=== PATIENT | female | born 1990 | race Caucasian/White ===

== ENCOUNTER → 2018-02-08 | Outpatient (CLI) | payer OTHER ==
[2012-11-05 23:50] VITALS: BP 119/57
[2018-02-08 22:36] LABS: ESTRADIOL 167 pg/mL (()); FOLLICLE STIMULATING HORMONE 2.5 mIU/mL (()); LUTENIZING HORMONE 3.2 mIU/mL (()); PROLACTIN 7.9 ng/mL (5.2-26.5)
== END ==
LOC: LAB 13:21
PROVIDERS: Family Medicine
DX: E28.8 Other ovarian dysfunction (principal); R23.2 Flushing

== ENCOUNTER 2018-04-20 22:01 | Emergency (ER) | payer OTHER ==
[2018-04-20] MEDS ORDERED: LEXAPRO20 M1 PO (22:09)
[2018-04-20] MEDS ORDERED: TYLENOL WITH CO1 TA1 PO (22:09)
[2018-04-20] MEDS ORDERED: AMOXICILLIN875 MG PO (22:09)
[2018-04-20] MEDS ORDERED: AUGMENTIN 875-1 EAC1 PO (23:00)
[2018-04-20 23:10] VITALS: BP 141/91
== END 2018-04-20 23:10 | disposition home or self-care (01) ==
LOC: ED 22:01
DX: K05.219 Aggressive periodontitis, localized, unspecified severity (principal); F17.210 Nicotine dependence, cigarettes, uncomplicated

== ENCOUNTER → 2019-06-10 | Outpatient (CLI) | payer BC ==
[~2019-06-10] MED LIST: AMOXICILLIN875 MG PO; AUGMENTIN 875-1 EAC1 PO; LEXAPRO20 M1 PO; TYLENOL WITH CO1 TA1 PO
[2019-06-10 16:45] LABS: EOS # 0.1 (0.04-0.40); EOS % 1.4 % (1.0-5.0); HEMATOCRIT 41.6 % (37.0-47.0); HEMOGLOBIN 14.5 g/dL (12.5-16.0); LYMPH# 1.6 (1.50-4.00); MEAN CELL VOLUME 91 fl (78-100); MEAN CORPUSCULAR HEMOGLOBIN 32 pg (27-31); MEAN CORPUSCULAR HGB CONC 35 g/dL (33-37); MEAN PLATELET VOLUME 10.5 fl (7.4-10.4); MONO # 0.6 (0.20-0.80); NEU # 4.6 (1.40-6.50); PLATELET COUNT 256 K/mm3 (130-400); RED BLOOD COUNT 4.56 M/mm3 (4.10-5.30); RED CELL DISTRIBUTION WIDTH 12.9 % (11.5-14.5); WHITE BLOOD COUNT 6.9 K/mm3 (4.8-10.8)
[2019-06-10 16:54] LABS: ALBUMIN 4.8 g/dL (3.5-5.0); POTASSIUM 3.9 mmol/L (3.5-5.1)
[2019-06-10 16:55] LABS: CALCIUM 9.7 mg/dL (8.3-10.5)
[2019-06-10 16:57] LABS: TOTAL PROTEIN 8.7 g/dL (6.4-8.3)
[2019-06-10 16:58] LABS: TOTAL BILIRUBIN 0.4 mg/dL (0.2-1.2)
== END ==
LOC: LAB 16:34
PROVIDERS: Family Medicine
DX: Z00.00 Encounter for general adult medical examination without abnormal findings (principal); E78.5 Hyperlipidemia, unspecified

== ENCOUNTER → 2021-06-28 | Outpatient (CLI) | payer BC ==
[~2021-06-28] MED LIST changes: +GOOD NEIGHBOR M25 MG PO
[2021-06-28 16:22] LABS: BASO # 0.03 K/mm3 (0.02-0.10); EOS # 0.05 K/mm3 (0.04-0.40); EOS % 0.7 % (1.0-5.0); HEMATOCRIT 38.8 % (37.0-47.0); HEMOGLOBIN 13.4 g/dL (12.5-16.0); LYMPH# 2.34 K/mm3 (1.50-4.00); MEAN CELL VOLUME 92 fl (78-100); MEAN CORPUSCULAR HEMOGLOBIN 32 pg (27-31); MEAN CORPUSCULAR HGB CONC 35 g/dL (33-37); MONO # 0.47 K/mm3 (0.20-0.80); NEU # 3.86 K/mm3 (1.40-6.50); PLATELET COUNT 225 K/mm3 (130-400); RED BLOOD COUNT 4.22 M/mm3 (4.10-5.30); RED CELL DISTRIBUTION WIDTH 11.8 % (11.5-14.5); WHITE BLOOD COUNT 6.8 K/mm3 (4.8-10.8)
[2021-06-28 17:04] LABS: ALBUMIN 4.3 g/dL (3.5-5.0); POTASSIUM 3.5 mmol/L (3.5-5.1)
[2021-06-28 17:06] LABS: CALCIUM 9.4 mg/dL (8.3-10.5)
[2021-06-28 17:07] LABS: TOTAL PROTEIN 7.1 g/dL (6.4-8.3)
[2021-06-28 17:09] LABS: TOTAL BILIRUBIN 0.6 mg/dL (0.2-1.2)
== END ==
LOC: LAB 16:09
PROVIDERS: Family Medicine
DX: Z00.00 Encounter for general adult medical examination without abnormal findings (principal); E78.5 Hyperlipidemia, unspecified

== ENCOUNTER → 2022-09-22 | Outpatient (CLI) | payer OTHER ==
[2022-09-22 12:02] LABS: BASO # 0.03 K/mm3 (0.02-0.10); EOS # 0.05 K/mm3 (0.04-0.40); EOS % 0.9 % (1.0-5.0); HEMATOCRIT 42.7 % (37.0-47.0); HEMOGLOBIN 14.7 g/dL (12.5-16.0); LYMPH# 1.43 K/mm3 (1.50-4.00); MEAN CELL VOLUME 93 fl (78-100); MEAN CORPUSCULAR HEMOGLOBIN 32 pg (27-31); MEAN CORPUSCULAR HGB CONC 34 g/dL (33-37); MEAN PLATELET VOLUME 9.9 fl (7.4-10.4); MONO # 0.45 K/mm3 (0.20-0.80); NEU # 3.59 K/mm3 (1.40-6.50); PLATELET COUNT 275 K/mm3 (130-400); RED CELL DISTRIBUTION WIDTH 12.1 % (11.5-14.5); WHITE BLOOD COUNT 5.6 K/mm3 (4.8-10.8)
[2022-09-22 12:09] LABS: POTASSIUM 4.3 mmol/L (3.5-5.1)
[2022-09-22 12:10] LABS: ALBUMIN 4.6 g/dL (3.5-5.0)
[2022-09-22 12:11] LABS: CALCIUM 9.7 mg/dL (8.3-10.5)
[2022-09-22 12:12] LABS: TOTAL PROTEIN 7.6 g/dL (6.4-8.3)
[2022-09-22 12:14] LABS: TOTAL BILIRUBIN 0.6 mg/dL (0.2-1.2)
== END ==
LOC: LAB 11:44
PROVIDERS: Family Medicine
DX: Z00.00 Encounter for general adult medical examination without abnormal findings (principal); Z12.39 Encounter for other screening for malignant neoplasm of breast; E78.5 Hyperlipidemia, unspecified; F41.8 Other specified anxiety disorders; N95.1 Menopausal and female climacteric states; G44.019 Episodic cluster headache, not intractable; E55.9 Vitamin D deficiency, unspecified; Z72.0 Tobacco use

== ENCOUNTER → 2023-12-23 | Outpatient (CLI) | payer BC | LOC: MAMMO 09:00 | DX: Z12.31 Encounter for screening mammogram for malignant neoplasm of breast (principal) ==

== ENCOUNTER → 2024-05-10 | Outpatient (CLI) | payer BC ==
[2024-05-10 07:27] LABS: BASO # 0.01 K/mm3 (0.02-0.10); EOS # 0.05 K/mm3 (0.04-0.40); EOS % 1.2 % (1.0-5.0); HEMATOCRIT 41.4 % (37.0-47.0); HEMOGLOBIN 14.3 g/dL (12.5-16.0); MEAN CELL VOLUME 93 fl (78-100); MEAN CORPUSCULAR HEMOGLOBIN 32 pg (27-31); MEAN CORPUSCULAR HGB CONC 35 g/dL (33-37); MEAN PLATELET VOLUME 9.5 fl (7.4-10.4); MONO # 0.29 K/mm3 (0.20-0.80); NEU # 2.22 K/mm3 (1.40-6.50); PLATELET COUNT 269 K/mm3 (130-400); RED BLOOD COUNT 4.47 M/mm3 (4.10-5.30); RED CELL DISTRIBUTION WIDTH 12.3 % (11.5-14.5); WHITE BLOOD COUNT 4.3 K/mm3 (4.8-10.8)
[2024-05-10 07:35] LABS: ALBUMIN 4.2 g/dL (3.5-5.0)
[2024-05-10 07:36] LABS: CALCIUM 9.5 mg/dL (8.3-10.5)
[2024-05-10 07:37] LABS: TOTAL PROTEIN 6.8 g/dL (6.4-8.3)
[2024-05-10 07:39] LABS: TOTAL BILIRUBIN 0.5 mg/dL (0.2-1.2)
== END ==
LOC: LAB 07:12
PROVIDERS: Nurse Practitioner
DX: Z00.00 Encounter for general adult medical examination without abnormal findings (principal)